=== PATIENT | female | born 1950 | race Caucasian/White ===

== ENCOUNTER 2020-02-20 11:15 | Emergency (ER) | payer MEDICARE ==
[~2020-02-20] VITALS: Ht 162.6 cm; Wt 83.2 kg
[2020-02-20] MEDS ORDERED: traMADol 50MG tablet PO ONE (11:55)
[2020-02-20] MEDS ORDERED: TRAM50TA2 PO (13:40)
[2020-02-20 14:10] VITALS: BP 114/65
== END 2020-02-20 14:11 | disposition home or self-care (01) ==
LOC: ER 11:16
DX: M54.2 Cervicalgia (principal); R07.81 Pleurodynia; Z88.5 Allergy status to narcotic agent; Z88.6 Allergy status to analgesic agent; W18.39XA Other fall on same level, initial encounter; Y93.89 Activity, other specified; Y92.89 Other specified places as the place of occurrence of the external cause; Y99.8 Other external cause status
CPT/HCPCS: 71101; 72040; 99284

== ENCOUNTER 2020-09-03 13:33 | Inpatient (IN) | payer MEDICARE ==
[~2020-09-03] VITALS: Ht 165.1 cm; Wt 63.0 kg
[2020-09-03] MEDS ORDERED: normal saline 1000ML IV soln IVB ONE (14:10)
[2020-09-03 14:31] LABS: BASOPHILS % (AUTO) 0.2 % (0-1); EOSINOPHILS % (AUTO) 0.3 % (0-6); HEMATOCRIT 35.2 % (35.0-45.0); HEMOGLOBIN 11.9 g/dl (12.0-16.0); LYMPHOCYTES # (AUTO) 1.1 X10'3 (1.1-4.8); LYMPHOCYTES % (AUTO) 16.2 % (21-51); MEAN CORPUSCULAR HEMOGLOBIN 32.6 PG (27.0-31.0); MEAN CORPUSCULAR HGB CONC 33.8 g/dL (33.0-36.5); MEAN CORPUSCULAR VOLUME 96.4 FL (78-98); MEAN PLATELET VOLUME 7.2 FL (7.4-10.4); MONOCYTES # (AUTO) 0.5 X10'3 (0-0.9); MONOCYTES % (AUTO) 7.1 % (2-12); NEUTROPHILS # (AUTO) 5.4 X10'3 (1.8-7.7); NEUTROPHILS % (AUTO) 76.2 % (42-75); PLATELET COUNT 203 X10'3 (140-440); RED BLOOD COUNT 3.65 X10'6 (4.20-5.60); RED CELL DISTRIBUTION WIDTH 13.9 % (11.5-14.5); WHITE BLOOD COUNT 7.1 X10'3 (4.5-11.0)
[2020-09-03 14:42] LABS: ALANINE AMINOTRANSFERASE 15 U/L (12-78); ALBUMIN 2.8 G/DL (3.4-5.0); ALKALINE PHOSPHATASE 132 IU/L (46-116); ANION GAP 7 (8-16); ASPARTATE AMINO TRANSFERASE 17 U/L (10-37); BILIRUBIN,TOTAL 0.4 MG/DL (0.1-1.0); BLOOD UREA NITROGEN 8 MG/DL (7-18); BUN/CREATININE RATIO 4.9 (6.6-38.0); CALCIUM 7.9 MG/DL (8.5-10.1); CHLORIDE 93 MMOL/L (99-107); CREATININE 1.64 MG/DL (0.40-0.90); GLUCOSE 105 MG/DL (70-104); SODIUM 124 MMOL/L (135-145); TOTAL CARBON DIOXIDE 23.8 MMOL/L (24-32); TOTAL PROTEIN 5.7 G/DL (6.4-8.2); eGFR 31 ML/MIN
[2020-09-03 14:47] LABS: POTASSIUM 2.8 MMOL/L (3.5-5.1)
[2020-09-03] MEDS ORDERED: potassium Cl 20 mEq SR tablet PO ONE (14:55)
[2020-09-03] MEDS: potassium CL 10mEq/100ml bag 100 ML IV SCH ×2 (15:12→17:22)
[2020-09-03] MEDS ORDERED: potassium Cl 40MEQ/1/2NS 520ml 520 ML IV PRN (16:00)
[2020-09-03] MEDS ORDERED: magnesium 4gm in 100ml NS 100 ML IV PRN (16:00)
[2020-09-03] MEDS ORDERED: magnesium 2GM in 50ml NS 50 ML IV PRN (16:00)
[2020-09-03] MEDS ORDERED: docusate sod 100mg capsule PO PRN (16:00)
[2020-09-03] MEDS ORDERED: ondansetron/PF 4mg/2ml inj IV PRN (16:00)
[2020-09-03] MEDS: normal saline 1000ml 1,000 ML IV SCH ×2 (16:00→18:55)
[2020-09-03] MEDS ORDERED: acetaminophen 325mg tablet PO PRN (16:00)
[2020-09-03] MEDS ORDERED: potassium Cl 20 mEq SR tablet PO PRN ×2 (16:00)
[2020-09-03] MEDS ORDERED: IBUP-864 PO (16:15)
[2020-09-03] MEDS ORDERED: ATOR10TA70 PO (16:15)
[2020-09-03] MEDS ORDERED: METF-950 PO (16:15)
[2020-09-03] MEDS ORDERED: LISI2.5T2 PO (16:15)
[2020-09-03] MEDS ORDERED: ipratropium/albuterol 3ml nebule NEB PRN (16:20)
[2020-09-03] MEDS ORDERED: albuterol 2.5 MG/3 ML nebule NEB PRN (16:20)
--- NOTE | 2020-09-03 16:43 | NUR ---
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
[2020-09-03] MEDS ORDERED: QUET100T33 PO (16:47)
[2020-09-03] MEDS ORDERED: ALPR-624 PO (16:47)
[2020-09-03] MEDS ORDERED: insulin Lispro (HumaLOG) vial - multi-dose SQ SCH (16:50)
[2020-09-03] MEDS ORDERED: MESSAGE TO PHARMACY PO ONE (16:50)
[2020-09-03] MEDS ORDERED: dextrose ORAL solution 15 GM/59 ML bottle PO PRN ×2 (16:50)
[2020-09-03] MEDS ORDERED: glucagon, human recombinant 1mg kit SUBCUT PRN (16:50)
[2020-09-03] MEDS ORDERED: dextrose 50%-water 50ml dispensing syringe IV PRN ×2 (16:50)
[2020-09-03] MEDS ORDERED: ALPRAZolam 0.5mg tablet PO PRN (16:55)
[2020-09-03 17:04] LABS: URINE AMPHETAMINE SCREEN NEGATIVE (Neg); URINE BARBITUATE SCREEN NEGATIVE (Neg); URINE BENZODIAZEPINES SCREEN NEGATIVE (Neg); URINE CANNABINOID SCREEN POSITIVE (Neg); URINE COCAINE SCREEN NEGATIVE (Neg); URINE METHADONE SCREEN NEGATIVE (Neg); URINE OPIATE SCREEN NEGATIVE (Neg); URINE PHENCYCLIDINE SCREEN NEGATIVE (Neg)
[2020-09-03] MEDS: nicotine 21mg patch - 24 hr TD SCH (17:22)
[2020-09-03 17:26] LABS: HEMOGLOBIN A1C 5.6 % (4.5-6.2)
[2020-09-03] MEDS: potassium Cl 40MEQ/1/2NS 520ml 520 ML IV PRN (19:52)
[2020-09-03] MEDS ORDERED: enoxaparin 40mg/0.4ml syringe SQ SCH (20:00)
--- NOTE | 2020-09-03 20:00 | NUR ---
Patient in room [facility] 4008. I have received report from ALVIN Galan and had the opportunity to ask questions and assume patient care.
[2020-09-03 20:51] VITALS: BP 147/77
[2020-09-03] MEDS ORDERED: insulin glargine (Lantus) pen - multi-dose SQ SCH (21:00)
[2020-09-03] MEDS: quetiapine 100mg tablet PO SCH (21:28)
[2020-09-03] MEDS: LIDOcaine 5% patch TP SCH (23:08)
[2020-09-04] VITALS: BP_SYST 100; BP_SYST 111; BP_SYST 119; BP_DIAS 66; BP_DIAS 71; BP_DIAS 74
[2020-09-04 00:09] VITALS: BP 99/64
[2020-09-04 00:12] VITALS: BP 99/66
[2020-09-04] MEDS: potassium Cl 40MEQ/1/2NS 520ml 520 ML IV PRN (00:14)
[2020-09-04] MEDS: morphine 2 MG/ML inj. syringe IV PRN ×2 (04:41→08:29)
[2020-09-04 05:30] VITALS: BP 162/98
[2020-09-04] MEDS: normal saline 1000ml 1,000 ML IV SCH (05:35)
--- NOTE | 2020-09-04 06:40 | NUR ---
Patient in room [facility] 4008. I have received report from ALVIN Cardoza and had the opportunity to ask questions and assume patient care.
--- NOTE | 2020-09-04 06:48 | NUR ---
Problems reprioritized. Patient report given, questions answered & plan of care reviewed with ALVIN Navarro.
[2020-09-04 07:51] LABS: BASOPHILS % (AUTO) 0.5 % (0-1); EOSINOPHILS % (AUTO) 1.2 % (0-6); HEMATOCRIT 33.2 % (35.0-45.0); HEMOGLOBIN 11.2 g/dl (12.0-16.0); LYMPHOCYTES # (AUTO) 1.4 X10'3 (1.1-4.8); LYMPHOCYTES % (AUTO) 35.9 % (21-51); MEAN CORPUSCULAR HEMOGLOBIN 32.8 PG (27.0-31.0); MEAN CORPUSCULAR HGB CONC 33.9 g/dL (33.0-36.5); MEAN CORPUSCULAR VOLUME 96.8 FL (78-98); MEAN PLATELET VOLUME 7.6 FL (7.4-10.4); MONOCYTES # (AUTO) 0.3 X10'3 (0-0.9); NEUTROPHILS # (AUTO) 2.1 X10'3 (1.8-7.7); NEUTROPHILS % (AUTO) 54.4 % (42-75); PLATELET COUNT 205 X10'3 (140-440); RED BLOOD COUNT 3.43 X10'6 (4.20-5.60); RED CELL DISTRIBUTION WIDTH 14.2 % (11.5-14.5); WHITE BLOOD COUNT 3.8 X10'3 (4.5-11.0)
[2020-09-04 08:08] LABS: ALANINE AMINOTRANSFERASE 18 U/L (12-78); ALBUMIN 2.8 G/DL (3.4-5.0); ALKALINE PHOSPHATASE 126 IU/L (46-116); ANION GAP 8 (8-16); ASPARTATE AMINO TRANSFERASE 14 U/L (10-37); BILIRUBIN,TOTAL 0.2 MG/DL (0.1-1.0); BLOOD UREA NITROGEN 6 MG/DL (7-18); BUN/CREATININE RATIO 10.2 (6.6-38.0); CALCIUM 8.3 MG/DL (8.5-10.1); CHLORIDE 107 MMOL/L (99-107); CREATININE 0.59 MG/DL (0.40-0.90); GLUCOSE 87 MG/DL (70-104); MAGNESIUM 1.6 MG/DL (1.5-2.4); POTASSIUM 4.7 MMOL/L (3.5-5.1); SODIUM 137 MMOL/L (135-145); TOTAL CARBON DIOXIDE 22.4 MMOL/L (24-32); TOTAL PROTEIN 5.7 G/DL (6.4-8.2); eGFR > 90 ML/MIN
[2020-09-04] MEDS: LIDOcaine 5% patch TP SCH (08:28)
[2020-09-04] MEDS: nicotine 21mg patch - 24 hr TD SCH (08:29)
[2020-09-04] MEDS: quetiapine 100mg tablet PO SCH ×2 (08:29→13:22)
[2020-09-04 10:00] VITALS: BP_SYST 130; BP_SYST 140; BP_DIAS 82; BP_DIAS 86
--- NOTE | 2020-09-04 10:13 | NUR ---
Malnutrition consult: Pt reports wt loss with decreased appetite per malnutrition risk screen with RN. No reliable wt hx in EMR. Pt on a heart healthy diet documented with 100% PO intake first meal. No documented decrease in muscle strength or edema. Pt currently lacks a minimum of two criteria for malnutrition. Will continue to follow and further monitor qualifying criteria. Addendum: 09/04/20 at [address] Amended: Links added.
[2020-09-04] MEDS ORDERED: NICO-687 TD (11:24)
[2020-09-04] MEDS ORDERED: POTA20TA19 PO (11:24)
[2020-09-04] MEDS ORDERED: TEMA15CA PO (11:24)
[2020-09-04] MEDS ORDERED: HYDR-3964 PO (12:08)
--- NOTE | 2020-09-04 13:50 | NUR ---
DC completed by charge nurse
== END 2020-09-04 13:50 | disposition home or self-care (01) | DRG 640 ==
LOC: ER 13:33 → ED HOLD 15:58 → EDBD 15:58 → EDBEDREQ 20:02 → ORTHO 4S 20:28
PROVIDERS: ADMIT Family Medicine; ATTEND Family Medicine
DX: E86.0 Dehydration (principal); N17.0 Acute kidney failure with tubular necrosis; E86.9 Volume depletion, unspecified; I95.1 Orthostatic hypotension; E87.1 Hypo-osmolality and hyponatremia; E87.6 Hypokalemia; F17.210 Nicotine dependence, cigarettes, uncomplicated; G47.00 Insomnia, unspecified; I10 Essential (primary) hypertension; J44.9 Chronic obstructive pulmonary disease, unspecified; K52.9 Noninfective gastroenteritis and colitis, unspecified; Z66 Do not resuscitate; M54.9 Dorsalgia, unspecified; W18.39XA Other fall on same level, initial encounter; G89.29 Other chronic pain; F41.9 Anxiety disorder, unspecified; M54.5 Low back pain; Z82.49 Family history of ischemic heart disease and other diseases of the circulatory system; Z79.899 Other long term (current) drug therapy; Y93.89 Activity, other specified; Y92.89 Other specified places as the place of occurrence of the external cause; Y99.8 Other external cause status; Z71.6 Tobacco abuse counseling
CPT/HCPCS: 36415; 80053; 80305; 83036; 83735; 85025; 87081; 93005; 93306; 94640; 94760; 96361; 96365; 99285; G0378; J1650; J1815; J2270; J3480; J7030

== ENCOUNTER 2023-06-06 22:53 | Emergency (ER) | payer MEDICARE ==
[~2023-06-06] VITALS: Ht 162.6 cm; Wt 77.3 kg
[~2023-06-06 22:53] MED LIST: QUET100T34 PO
[2023-06-06 23:35] VITALS: TEMP 98.4
[2023-06-07 00:20] LABS: RED BLOOD COUNT 4.41 X10'6 (4.20-5.60)
[2023-06-07 00:23] LABS: BASOPHILS # (AUTO) 0.1 X10'3 (0-0.2); BASOPHILS % (AUTO) 0.5 % (0-1); EOSINOPHILS % (AUTO) 0.1 % (0-6); HEMATOCRIT 39.4 % (35.0-45.0); HEMOGLOBIN 13.3 g/dl (12.0-16.0); LYMPHOCYTES # (AUTO) 1.3 X10'3 (1.1-4.8); LYMPHOCYTES % (AUTO) 12.9 % (21-51); MEAN CORPUSCULAR HEMOGLOBIN 30.1 PG (27.0-31.0); MEAN CORPUSCULAR HGB CONC 33.7 g/dL (33.0-36.5); MEAN CORPUSCULAR VOLUME 89.3 FL (78-98); MEAN PLATELET VOLUME 8.6 FL (7.4-10.4); MONOCYTES # (AUTO) 0.6 X10'3 (0-0.9); MONOCYTES % (AUTO) 6.1 % (2-12); NEUTROPHILS # (AUTO) 8.4 X10'3 (1.8-7.7); NEUTROPHILS % (AUTO) 80.4 % (42-75); PLATELET COUNT 271 X10'3 (140-440); RED CELL DISTRIBUTION WIDTH 14.6 % (11.5-14.5); WHITE BLOOD COUNT 10.4 X10'3 (4.5-11.0)
[2023-06-07 00:29] LABS: ALANINE AMINOTRANSFERASE 20 U/L (12-78); ALBUMIN 3.9 G/DL (3.4-5.0); ALBUMIN/GLOBULIN RATIO 1.1 (1.1-1.5); ALKALINE PHOSPHATASE 62 IU/L (46-116); ANION GAP 10 (8-16); ASPARTATE AMINO TRANSFERASE 16 U/L (10-37); BILIRUBIN,TOTAL 1.8 MG/DL (0.1-1.0); BLOOD UREA NITROGEN 21 MG/DL (7-18); BUN/CREATININE RATIO 15.3 (10.0-20.0); CALCIUM 10.2 MG/DL (8.5-10.1); CHLORIDE 101 MMOL/L (99-107); CREATININE 1.37 MG/DL (0.40-0.90); GLUCOSE 236 MG/DL (70-104); LIPASE 41 U/L (16-77); POTASSIUM 3.4 MMOL/L (3.5-5.1); SODIUM 145 MMOL/L (135-145); TOTAL CARBON DIOXIDE 34.2 MMOL/L (24-32); TOTAL PROTEIN 7.3 G/DL (6.4-8.2); eCRCL 31 ML/MIN; eGFR 38 ML/MIN
[2023-06-07] MEDS: ondansetron/PF 4mg/2ml inj IV ONE (04:02)
[2023-06-07] MEDS: normal saline 1000ml 1,000 ML IV ONE (04:02)
[2023-06-07] MEDS: pantoprazole 40 MG vial IV ONE (04:02)
[2023-06-07 05:43] VITALS: BP 136/72; PULSE 73; RESP 16; O2SAT 99
== END 2023-06-07 06:01 | disposition home or self-care (01) ==
LOC: ER 22:54
DX: R11.2 Nausea with vomiting, unspecified (principal); R12 Heartburn; I10 Essential (primary) hypertension; E11.9 Type 2 diabetes mellitus without complications; J44.9 Chronic obstructive pulmonary disease, unspecified; Z90.49 Acquired absence of other specified parts of digestive tract; Z79.899 Other long term (current) drug therapy
CPT/HCPCS: 36415; 74176; 80053; 83690; 84145; 84484; 85025; 96361; 96374; 96375; 99285; C9113; J2405; J7030

== ENCOUNTER 2023-06-14 14:35 | Emergency (ER) | payer MEDICARE ==
[~2023-06-14] VITALS: Ht 162.6 cm; Wt 74.8 kg
[2023-06-14 15:34] LABS: ALBUMIN 3.3 G/DL (3.4-5.0); ANION GAP 13 (8-16); BLOOD UREA NITROGEN 14 MG/DL (7-18); BUN/CREATININE RATIO 10.7 (10.0-20.0); CALCIUM 8.2 MG/DL (8.5-10.1); CHLORIDE 105 MMOL/L (99-107); CREATININE 1.31 MG/DL (0.40-0.90); GLUCOSE 142 MG/DL (70-104); LIPASE 45 U/L (16-77); POTASSIUM 3.6 MMOL/L (3.5-5.1); SODIUM 143 MMOL/L (135-145); TOTAL CARBON DIOXIDE 24.6 MMOL/L (24-32); eCRCL 33 ML/MIN; eGFR 40 ML/MIN
[2023-06-14 15:41] LABS: BASOPHILS # (AUTO) 0.1 X10'3 (0-0.2); BASOPHILS % (AUTO) 0.7 % (0-1); EOSINOPHILS % (AUTO) 0.5 % (0-6); HEMATOCRIT 37.8 % (35.0-45.0); HEMOGLOBIN 12.5 g/dl (12.0-16.0); LYMPHOCYTES # (AUTO) 0.9 X10'3 (1.1-4.8); LYMPHOCYTES % (AUTO) 10.9 % (21-51); MEAN CORPUSCULAR HEMOGLOBIN 29.6 PG (27.0-31.0); MEAN CORPUSCULAR HGB CONC 33.2 g/dL (33.0-36.5); MEAN CORPUSCULAR VOLUME 89.2 FL (78-98); MEAN PLATELET VOLUME 8.7 FL (7.4-10.4); MONOCYTES # (AUTO) 0.5 X10'3 (0-0.9); MONOCYTES % (AUTO) 5.4 % (2-12); NEUTROPHILS # (AUTO) 7.1 X10'3 (1.8-7.7); NEUTROPHILS % (AUTO) 82.5 % (42-75); PLATELET COUNT 219 X10'3 (140-440); RED BLOOD COUNT 4.24 X10'6 (4.20-5.60); RED CELL DISTRIBUTION WIDTH 14.7 % (11.5-14.5); WHITE BLOOD COUNT 8.6 X10'3 (4.5-11.0)
[2023-06-14 17:31] LABS: BILIRUBIN,URINE SMALL (Neg); CLARITY,URINE CLEAR (Clear); COLOR,URINE YELLOW (Yellow); GLUCOSE, URINE NEGATIVE (Neg); KETONES,URINE 40 mg/dl (Neg); LEUKOCYTE ESTERASE ,URINE NEGATIVE (Neg); NITRITES, URINE NEGATIVE (Neg); OCCULT BLOOD,URINE NEGATIVE (Neg); PH,URINE 8.5 (4.8-8.0); PROTEIN,URINE NEGATIVE (Neg)
[2023-06-14 17:33] LABS: UA COLLECTION TYPE NON-SPECIFIED
[2023-06-14] MEDS: normal saline 1000ML IV soln IVB ONE (17:38)
[2023-06-14] MEDS: metoclopramide 5 mg/ml inj IV ONE (17:38)
[2023-06-14] MEDS ORDERED: OMEP40CA21 PO (19:14)
[2023-06-14] MEDS ORDERED: METO10TA3 PO (19:14)
[2023-06-14] MEDS ORDERED: DICY20TA17 PO (19:14)
[2023-06-14 21:50] VITALS: BP 146/70; PULSE 99; RESP 14; TEMP 98.3; O2SAT 95
== END 2023-06-14 21:52 | disposition home or self-care (01) ==
LOC: ER 14:35
DX: R11.10 Vomiting, unspecified (principal); R10.13 Epigastric pain; I10 Essential (primary) hypertension; E11.9 Type 2 diabetes mellitus without complications; J44.9 Chronic obstructive pulmonary disease, unspecified
CPT/HCPCS: 36415; 71045; 74176; 80048; 81003; 83690; 84484; 85025; 93005; 96361; 96374; 99285; J2765; J7030